=== PATIENT | male | born 1990 | race Hispanic/Latino ===

== ENCOUNTER 2023-01-01 13:53 | Emergency (ER) | payer SELFPAY ==
[2023-01-01] MEDS ORDERED: Boostrix 0.5 ML (Tdap) VIAL (>/=7 yrs of age) ONE (15:17)
== END 2023-01-01 15:21 | disposition home or self-care (01) ==
LOC: ERS 13:53
DX: S60.512A Abrasion of left hand, initial encounter (principal); W23.0XXA Caught, crushed, jammed, or pinched between moving objects, initial encounter; Z23 Encounter for immunization
CPT/HCPCS: 90471; 90715